=== PATIENT | male | born 1950 | race Caucasian/White ===

== ENCOUNTER → 2017-07-04 | Outpatient (CLI) | payer MEDICARE, OTHER ==
--- NOTE | 2017-07-04 10:20 | RADIOLOGY REPORT (SQ) ---
EXAM DESCRIPTION: CT CHEST WITHOUT COMPLETED DATE/TIME: 07/04/2017 9:06 am REASON FOR STUDY: DYSPNEA (R06.00) R06.00 DYSPNEA, UNSPECIFIED COMPARISON: None. TECHNIQUE: CT scan performed of the chest without intravenous contrast. Images reviewed with lung, soft tissue and bone windows. Reconstructed coronal and sagittal MPR images reviewed. All images st ored on PACS. All CT scanners at this facility use dose modulation, iterative reconstruction, and/or weight based d osing when appropriate to reduce radiation dose to as low as reasonably achievable (ALARA). [facility]: Dose Right [facility]: CareDose [facility]: Dose Right [facility]: Teradose 4D [facility]: Smart BigSwerve RADIATION DOSE: CT Rad equipment meets quality standard of care and radiation dose reduction techniq ues were employed. CTDIvol: 3.7 mGy. DLP: 165 mGy-cm. mGy. LIMITATIONS: No technical limitations. FINDINGS: LUNGS AND PLEURA: Extensive bullous emphysema. Scarring in the apices. No honeycombing. No focal masses. HILAR AND MEDIASTINAL STRUCTURES: No identified masses or abnormal nodes. No obvious aneurysm. HEART AND VASCULAR STRUCTURES: No aneurysm. No pericardial effusion. UPPER ABDOMEN: Possible mass measuring 2.7 cm in the hilum spleen. This could also be a cystic lesio n from the pancreas. THYROID AND OTHER SOFT TISSUES: No masses. No adenopathy. BONES: No significant finding. HARDWARE: None in the chest. OTHER: No other significant findings. IMPRESSION: Extensive bullous emphysema and scarring in the lungs. No masses. Questionable left upper quadrant mass. Incompletely imaged. COMMENT: Ultrasound or CT of the abdomen. TECHNICAL DOCUMENTATION: JOB ID: [id number] Quality ID # 436: Final reports with documentation of one or more dose reduction techniques (e.g., Au tomated exposure control, adjustment of the mA and/or kV according to patient size, use of iterative reconstruction technique) 2010 [employer]- All Rights Reserved Reading location - IP/workstation name: [email or web address]
== END ==
LOC: RAD 08:48
PROVIDERS: ATTEND Physician Assistant
DX: J43.9 Emphysema, unspecified (principal); R06.00 Dyspnea, unspecified
CPT/HCPCS: 71250

== ENCOUNTER → 2017-07-11 | Outpatient (CLI) | payer MEDICARE, OTHER ==
--- NOTE | 2017-07-11 10:18 | RADIOLOGY REPORT (SQ) ---
EXAM DESCRIPTION: CT ABDOMEN COMBO COMPLETED DATE/TIME: 07/11/2017 9:28 am REASON FOR STUDY: LUQ ABDOMINAL SWELLING. MASS AND LUMP R19.02 LEFT UPPER QUADRANT ABDOMINAL SWELLI NG, MASS AND LUMP COMPARISON: CT chest examination dated 07/04/2017 TECHNIQUE: CT scan of the abdomen performed with and without intravenous contrast, and with oral con trast. Contrasted imaging performed using helical scanning technique with dynamic intravenous contras t injection. Images reviewed with lung, soft tissue, and bone windows. Reconstructed coronal and sagi ttal MPR images reviewed. Delayed images for evaluation of the urinary system also acquired and evalu ated. All images stored on PACS. All CT scanners at this facility use dose modulation, iterative reconstruction, and/or weight based d osing when appropriate to reduce radiation dose to as low as reasonably achievable (ALARA). [facility]: Dose Right [facility]: CareDose [facility]: Dose Right [facility]: Teradose 4D [facility]: Social DJ CONTRAST TYPE AND DOSE: contrast/concentration: Isovue 370.00 mg/ml; Total Contrast Delivered: 60.0 ml; Total Saline Delivered: 65.0 ml RENAL FUNCTION: GFR=45 RADIATION DOSE: CT Rad equipment meets quality standard of care and radiation dose reduction techniq ues were employed. CTDIvol: 8.8 - 8.9 mGy. DLP: 836 mGy-cm.. LIMITATIONS: None. FINDINGS: NONCONTRASTED IMAGING: No significant renal or bladder calcifications. No other significan t organ calcifications. POSTCONTRASTED IMAGING: LOWER CHEST: Emphysematous changes in the visualized lower lungs. Very small 2-3 mm left lower lobe pulmonary nodule, axial image 11, series 5. LIVER: A few too small to characterize hepatic lesions. Mild central intra and extrahepatic biliary dilatation in a post cholecystectomy patient. The hepatic and portal veins are patent. SPLEEN: Normal size. No focal lesions. PANCREAS: No masses. No significant calcifications. No adjacent inflammation or peripancreatic fluid collections. Pancreatic duct not dilated. GALLBLADDER: Prior cholecystectomy. ADRENAL GLANDS: No significant masses or asymmetry. RIGHT KIDNEY AND URETER: Right renal cyst. No significant calcifications. No hydronephrosis or hydro ureter. LEFT KIDNEY AND URETER: Left renal cysts. No significant calcifications. No hydronephrosis or hydr oureter. No significant calcifications. No hydronephrosis or hydroureter. AORTA AND VESSELS: Atherosclerotic changes involving the abdominal aorta and visualized branch vesse ls. No aneurysm. No dissection. Renal arteries, SMA, celiac without stenosis. RETROPERITONEUM: No retroperitoneal adenopathy, hemorrhage or masses. BOWEL AND PERITONEAL CAVITY: Colonic fecal stasis involving the visualized bowel. No free fluid or peritoneal masses. APPENDIX: Not visualized. ABDOMINAL WALL: Small fat containing umbilical hernia. BONES: Degenerative changes and disc disease involving the visualized lower lumbar spine. OTHER: No other significant finding. IMPRESSION: 1 Bilateral renal cysts. The left renal cyst likely accounts for the finding demonstrat ed on the CT chest examination dated 07/04/2017. 2 Prior cholecystectomy. 3 Small fat containing umbilical hernia. 4 A few too small to characterize hepatic lesions. 5 Additional findings as above. TECHNICAL DOCUMENTATION: JOB ID: [id number] Quality ID # 436: Final reports with documentation of one or more dose reduction techniques (e.g., Au tomated exposure control, adjustment of the mA and/or kV according to patient size, use of iterative reconstruction technique) 2010 [employer]- All Rights Reserved Reading location - IP/workstation name: [email or web address]
== END ==
LOC: RAD 08:43
PROVIDERS: ATTEND Physician Assistant
DX: R19.02 Left upper quadrant abdominal swelling, mass and lump (principal); K42.9 Umbilical hernia without obstruction or gangrene; N28.1 Cyst of kidney, acquired; K76.9 Liver disease, unspecified
CPT/HCPCS: 74170; 82565

== ENCOUNTER → 2017-09-23 | Outpatient (CLI) | payer MEDICARE, OTHER ==
[2017-09-23 11:26] LABS: ALANINE AMINOTRANSFERASE 26 U/L (21-72); ALKALINE PHOSPHATASE 57 U/L (38-126); ANION GAP 9 (5-19); ASPARTATE AMINO TRANSFERASE 22 U/L (17-59); BILIRUBIN,DIRECT 0.3 mg/dL (0.0-0.4); BILIRUBIN,TOTAL 0.6 mg/dL (0.2-1.3); BLOOD UREA NITROGEN 15 mg/dL (7-20); CALCIUM 9.4 mg/dL (8.4-10.2); CARBON DIOXIDE 31 mmol/L (22-30); CHLORIDE 102 mmol/L (98-107); CHOLESTEROL 115.06 mg/dL (0-200); GLUCOSE 102 mg/dL (75-110); POTASSIUM 4.4 mmol/L (3.6-5.0); SODIUM 141.6 mmol/L (137-145); TOTAL PROTEIN 6.7 g/dL (6.3-8.2); TRIGLYCERIDES 57 mg/dL (<150)
[2017-09-23 11:57] LABS: DIRECT LDL < 30 mg/dL (<100)
--- NOTE | 2017-09-23 12:29 | RADIOLOGY REPORT (SQ) ---
EXAM DESCRIPTION: U/S ABDOMEN LIMITED W/O DOP COMPLETED DATE/TIME: 09/23/2017 10:38 am REASON FOR STUDY: CYST OF KIDNEY, ACQUIRED,LIVER DISEASE N28.1 CYST OF KIDNEY, ACQUIRED K76.9 LIVE R DISEASE, UNSPECIFIED I10 ESSENTIAL (PRIMARY) HYPERTENSION COMPARISON: Abdominal ultrasound 09/23/2017 CT abdomen pelvis 07/11/2017 TECHNIQUE: Dynamic and static grayscale images acquired of the abdomen and recorded on PACS. Additio nal selected color Doppler and spectral images recorded. LIMITATIONS: Right upper quadrant bowel gas, midline bowel gas FINDINGS: PANCREAS: Not visualized LIVER: Normal size and echogenicity. No masses or biliary ductal dilatation. LIVER VASCULATURE: Normal directional flow of the main portal vein and hepatic veins. GALLBLADDER: Surgically absent ULTRASOUND-DETECTED MINAYA'S SIGN: Not applicable INTRAHEPATIC DUCTS AND COMMON DUCT: CBD and intrahepatic ducts normal caliber. No filling defects. INFERIOR VENA CAVA: Not well seen AORTA: Not well seen RIGHT KIDNEY: Right kidney 9.3 cm in size with a 3.6 cm cyst at the lower pole right kidney. PERITONEAL AND RIGHT PLEURAL SPACE: No ascites or effusions. OTHER: No other significant findings. IMPRESSION: Post cholecystectomy. Right lower pole renal cortical cyst TECHNICAL DOCUMENTATION: JOB ID: [id number] [employer]- All Rights Reserved Reading location - IP/workstation name: [email or web address]
[2017-09-23 12:32] LABS: ABSOLUTE EOSINOPHILS # (AUTO) 0.3 10^3/uL (0.0-0.6); ABSOLUTE LYMPHOCYTES (AUTO) 0.7 10^3/uL (0.5-4.7); ABSOLUTE MONOCYTES (AUTO) 0.7 10^3/uL (0.1-1.4); ABSOLUTE NEUT (AUTO) 6.6 10^3/uL (1.7-8.2); BASOPHILS % (AUTO) 0.2 % (0-2); EOSINOPHILS % (AUTO) 3.4 % (0-6); HEMATOCRIT 32.5 % (37.9-51.0); HEMOGLOBIN 11.3 g/dL (13.5-17.0); LYMPHOCYTES % (AUTO) 8.9 % (13-45); MEAN CORPUSCULAR HEMOGLOBIN 32.1 pg (27.0-33.4); MEAN CORPUSCULAR HGB CONC 34.7 g/dL (32.0-36.0); MEAN CORPUSCULAR VOLUME 92 fl (80-97); MONOCYTES % (AUTO) 8.5 % (3-13); PLATELET COUNT 324 10^3/uL (150-450); RED BLOOD COUNT 3.51 10^6/uL (4.35-5.55); RED CELL DISTRIBUTION WIDTH 13.2 % (11.5-14.0); TOTAL CELLS COUNTED % (AUTO) 100 %; WHITE BLOOD COUNT 8.4 10^3/uL (4.0-10.5)
--- NOTE | 2017-09-23 12:37 | RADIOLOGY REPORT (SQ) ---
EXAM DESCRIPTION: U/S RETROPERITON LTD COMPLETED DATE/TIME: 09/23/2017 10:37 am REASON FOR STUDY: CYST OF KIDNEY, ACQUIRED,LIVER DISEASE N28.1 CYST OF KIDNEY, ACQUIRED K76.9 LIVE R DISEASE, UNSPECIFIED COMPARISON: CT chest 07/04/2017 CT abdomen pelvis 07/11/2017 Abdominal ultrasound 09/23/2017 TECHNIQUE: Dynamic and static grayscale images acquired of the kidneys and bladder and recorded on P ACS. Additional selected color Doppler and spectral images recorded. LIMITATIONS: None. FINDINGS: RIGHT KIDNEY: Normal size, 9.3 cm in length. Normal echogenicity. No solid or suspici ous masses. 3.4 cm cyst right lower pole kidney. No hydronephrosis. No calcifications. LEFT KIDNEY: Normal size, 9.7 cm in length. Normal echogenicity. No solid or suspicious masses. 4 cm cyst left upper pole kidney. No hydronephrosis. No calcifications. BLADDER: Decompressed, not well seen OTHER FINDINGS: No other significant finding. IMPRESSION: Benign bilateral renal cortical cysts. TECHNICAL DOCUMENTATION: JOB ID: [id number] [employer]- All Rights Reserved Reading location - IP/workstation name: [email or web address]
== END ==
LOC: RAD 09:37
PROVIDERS: ATTEND Family Medicine Geriatric Medicine
DX: I10 Essential (primary) hypertension (principal); E78.5 Hyperlipidemia, unspecified; I73.9 Peripheral vascular disease, unspecified; J44.9 Chronic obstructive pulmonary disease, unspecified; N28.1 Cyst of kidney, acquired; K76.9 Liver disease, unspecified
CPT/HCPCS: 36415; 76705; 76775; 80053; 80061; 84443; 85025

== ENCOUNTER → 2017-12-22 | Outpatient (CLI) | payer MEDICARE, OTHER ==
[2017-12-22 15:11] LABS: ABSOLUTE EOSINOPHILS # (AUTO) 0.2 10^3/uL (0.0-0.6); ABSOLUTE LYMPHOCYTES (AUTO) 1.3 10^3/uL (0.5-4.7); ABSOLUTE MONOCYTES (AUTO) 0.7 10^3/uL (0.1-1.4); ABSOLUTE NEUT (AUTO) 4.1 10^3/uL (1.7-8.2); BASOPHILS % (AUTO) 0.6 % (0-2); EOSINOPHILS % (AUTO) 3.2 % (0-6); HEMATOCRIT 35.8 % (37.9-51.0); HEMOGLOBIN 12.3 g/dL (13.5-17.0); LYMPHOCYTES % (AUTO) 20.8 % (13-45); MEAN CORPUSCULAR HEMOGLOBIN 31.3 pg (27.0-33.4); MEAN CORPUSCULAR HGB CONC 34.3 g/dL (32.0-36.0); MEAN CORPUSCULAR VOLUME 91 fl (80-97); MONOCYTES % (AUTO) 10.6 % (3-13); PLATELET COUNT 364 10^3/uL (150-450); RED BLOOD COUNT 3.92 10^6/uL (4.35-5.55); RED CELL DISTRIBUTION WIDTH 13.6 % (11.5-14.0); SEGMENTED NEUTROPHILS % (AUTO) 64.8 % (42-78); TOTAL CELLS COUNTED % (AUTO) 100 %; WHITE BLOOD COUNT 6.3 10^3/uL (4.0-10.5)
== END ==
LOC: LAB 14:50
PROVIDERS: ATTEND Family Medicine Geriatric Medicine
DX: D64.9 Anemia, unspecified (principal)
CPT/HCPCS: 36415; 85025

== ENCOUNTER → 2018-07-14 | Outpatient (CLI) | payer MEDICARE, OTHER ==
--- NOTE | 2018-07-14 14:03 | RADIOLOGY REPORT (SQ) ---
EXAM DESCRIPTION: CT CHEST WITHOUT COMPLETED DATE/TIME: 07/14/2018 1:52 pm REASON FOR STUDY: R91.1 SOLITARY PULMONARY NODULE R91.1 SOLITARY PULMONARY NODULE COMPARISON: 07/04/2017 TECHNIQUE: CT scan performed of the chest without intravenous contrast. Images reviewed with lung, soft tissue and bone windows. Reconstructed coronal and sagittal MPR images reviewed. All images st ored on PACS. All CT scanners at this facility use dose modulation, iterative reconstruction, and/or weight based d osing when appropriate to reduce radiation dose to as low as reasonably achievable (ALARA). [facility]: Dose Right [facility]: CareDose [facility]: Dose Right [facility]: Teradose 4D [facility]: Smart Dajie RADIATION DOSE: CT Rad equipment meets quality standard of care and radiation dose reduction techniq ues were employed. CTDIvol: 3.3 mGy. DLP: 160 mGy-cm. mGy. LIMITATIONS: No technical limitations. FINDINGS: LUNGS AND PLEURA: There is scarring in the lung apices. Severe bilateral emphysematous ch anges with subpleural blebs and simplification of the lung architecture. There is a stable 4.7 mm no dule in the posterior aspect of the right upper lobe. HILAR AND MEDIASTINAL STRUCTURES: No identified masses or abnormal nodes. No obvious aneurysm. HEART AND VASCULAR STRUCTURES: No aneurysm. No pericardial effusion. UPPER ABDOMEN: No significant findings. Limited exam. THYROID AND OTHER SOFT TISSUES: No masses. No adenopathy. BONES: No significant finding. HARDWARE: None in the chest. OTHER: No other significant findings. IMPRESSION: Severe COPD. Stable 4.7 mm nodule in the posterior aspect of the right upper lobe. Ple ase see below for recommended follow-up. COMMENT: FLEISCHNER CRITERIA FOR FOLLOW-UP OF PULMONARY NODULES Incidentally detected new nodules in persons 35 or older. HIGH RISK: History of smoking or other known risk factors. <6mm single solid nodule: LOW RISK: no routine followup. HIGH RISK: optional CT 12 mo. TECHNICAL DOCUMENTATION: JOB ID: [id number] Quality ID # 436: Final reports with documentation of one or more dose reduction techniques (e.g., Au tomated exposure control, adjustment of the mA and/or kV according to patient size, use of iterative reconstruction technique) 2010 [employer]- All Rights Reserved Reading location - IP/workstation name: [email or web address]
== END ==
LOC: RAD 13:38
PROVIDERS: ATTEND Internal Medicine Pulmonary Disease
DX: J44.9 Chronic obstructive pulmonary disease, unspecified (principal); R91.1 Solitary pulmonary nodule
CPT/HCPCS: 71250

== ENCOUNTER 2019-04-10 11:36 | Inpatient (IN) | payer MEDICARE, OTHER ==
[2019-04-10] MEDS ORDERED: METHYLPREDNISOLONE INJ 125 MG/2 ML SDV IV ONE (11:52)
--- NOTE | 2019-04-10 12:11 | ER Document Report ---
ED Respiratory Problem - General Chief Complaint: Breathing Difficulty Stated Complaint: DIFFICULTY BREATHING Time Seen by Provider: 04/10/19 11:50 Primary Care Provider: FANNY ELENA MD [ACTIVE STAFF] - Follow up as needed Notes: HPI: 68-year-old male who is an extremely poor historian who was picked up by EMS. Patient supposedly got discharged from [facility] 1 week ago secondary to a pneumonia with a COPD exacerbation. History supposedly of COPD as well as also being on Lasix. called EMS secondary to breathing difficulty and "weak all over". Patient supposedly did not tack picker the prednisone, antibiotics, and has not taken his Lasix. EMS stated that the patient was wheezing with some low oxygen saturation. They did provide 3 albuterol/Atrovent nebulizers. They did not provide steroids. Patient was afebrile. No Accu-Chek was performed. Patient himself denies any chest pain, vomiting, or diarrhea. Patient states he is aware he is a poor historian and is asked to call his daughter who currently works in the hospital. ROS: See HPI Unable to obtain a full review of systems secondary to patient's condition Reviewed vital signs and nursing note as charted by RN. PHYSICAL EXAM: CONSTITUTIONAL: Alert and does follow commands HEAD: Normocephalic; atraumatic EYES: PERRL; Conjunctivae clear, sclerae non-icteric ENT: Normal nose; no rhinorrhea; moist mucous membranes; pharynx without lesions noted NECK: Supple without meningismus; non-tender; no cervical lymphadenopathy, no masses CARD: Regular rate and rhythm; no murmurs; symmetric distal pulses RESP: Patient has some tachypnea with some retractions. End expiratory wheezing with some scattered rhonchi and rales. ABD/GI: Normal bowel sounds; non-distended; soft, non-tender; no palpable orga nomegaly or masses BACK: The back appears normal and is non-tender to palpation EXT: Normal ROM in all joints; non-tender to palpation; 1+ pitting edema to bilateral lower shins SKIN: No acute lesions noted NEURO: CN 2-12 intact; 5/5 bilateral upper and lower extremity strength with sensation intact to light touch PSYCH: The patient's mood and manner are appropriate. Grooming and personal hyg iene are appropriate. TRAVEL OUTSIDE OF THE [place] IN LAST 30 DAYS: No - Related Data Allergies/Adverse Reactions: No Known Allergies Allergy (Unverified 05/25/12 07:10) Past Medical History - Social History Smoking Status: Former Smoker Family History: Reviewed & Not Pertinent - Past Medical History Cardiac Medical History: Reports: Hx Hypertension - 0N MEDS Denies: Hx Coronary Artery Disease, Hx Heart Attack Pulmonary Medical History: Reports: Hx COPD - ON MEDS Denies: Hx Asthma, Hx Bronchitis, Hx Pneumonia Neurological Medical History: Denies: Hx Cerebrovascular Accident, Hx Seizures Musculoskeletal Medical History: Reports Hx Arthritis - GENERALIZED - Immunizations Hx Diphtheria, Pertussis, Tetanus Vaccination: No Physical Exam - Vital signs Vitals: Temp Resp 98.3 F 11 L 04/10/19 11:45 04/10/19 11:45 Course - Re-evaluation Re-evalutation: Given the history and physical, we will place the patient on the monitor, and reassess the patient's airway and breathing, possibly place the patient on BiPAP, and reassess. Patient's blood pressure is tenuous and he is tachycardic. Lung examination as above. I would like to make sure that the patient's blood pressure was stable enough for the positive pressure ventilation. I have provided a dose of steroids. We will attempt to contact the patient's daughter. Patient is noted to have some edema to the upper extremities but no edema to the lower extremities? 04/10/19 12:09 EKG shows heart of 125, sinus tachycardia, right bundle branch block, nonspecific QRS widening. No obvious ST elevation or depression 04/10/19 12:34 I was able to talk to the patient's who is currently in the room who corroborates the story. Patient was at [facility] for 2 weeks secondary to pneumonia. She denies any history of heart failure. Given the tachycardia with the minimally low blood pressure we will provide a liter of fluid and consider BiPAP. Patient is speaking in complete sentences satting at 95% at this moment. 04/10/19 13:31 I have spoken with the daughter who is currently in the hospital. I have also obtain outside records from [facility]. There was a CT pulmonary embolism study on March 27. It showed severe emphysema with superimposed left upper lobe pneumonia. Patient has discharge diagnosis of acute on chronic respiratory failure, acute exacerbation of COPD, tachydysrhythmia, sepsis, Pseudomonas pneumonia, chronic anemia, with a heme positive stool. Patient at discharge was started on omeprazole and prednisone. Patient also had a YONAS showing an ejection fraction of 55%. Did recommend a skilled living facility but the patient declined. They suspected multifocal atrial tachycardia as his tachydysrhythmia. Given the history of multifocal atrial tachycardia with the EKG and heart rate as recorded, will provide magnesium and attempt to treat the patient's respiratory symptoms. 04/10/19 14:53 CT scan does show what appears to be a cavitary mass. 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 Family refuses to be transferred and would like to stay here. Daughter is an employee here and reiterates this to me. I have explained this to the hospitalist who states that they can accept. I have co ana with Fatimahn which should be coverage for Pseudomonas. Previous CT scan 9 months ago as well as the one from the previous admission did not show this lesion. - Vital Signs Vital signs: Temp Pulse Resp BP Pulse Ox 98.3 F 15 100/62 04/10/19 11:45 04/10/19 13:01 04/10/19 13:00 - Laboratory Result Diagrams: 04/10/19 11:50 04/10/19 11:50 Laboratory results interpreted by me: 04/10/19 04/10/19 04/10/19 11:50 11:50 11:50 WBC 15.4 H RBC 2.90 L Hgb 8.6 L Hct 26.2 L RDW 16.0 H Plt Count 681 H Seg Neuts % (Manual) 92 H Lymphocytes % (Manual) 1 L Abs Neuts (Manual) 14.2 H Abs Lymphs (Manual) 0.2 L Carbonic Acid ABG pH ABG pCO2 ABG pO2 ABG HCO3 ABG Total CO2 ABG O2 Saturation Chloride 91 L Carbon Dioxide 40 H* BUN 49 H Creatinine 1.32 H Est GFR (MDRD) Non-Af 54 L NT-Pro-B Natriuret Pep 699 H 04/10/19 13:14 WBC RBC Hgb Hct RDW Plt Count Seg Neuts % (Manual) Lymphocytes % (Manual) Abs Neuts (Manual) Abs Lymphs (Manual) Carbonic Acid 1.75 H ABG pH 7.46 H ABG pCO2 58.3 H ABG pO2 51.6 L ABG HCO3 40.6 H ABG Total CO2 42.4 H ABG O2 Saturation 87.4 L Chloride Carbon Dioxide BUN Creatinine Est GFR (MDRD) Non-Af NT-Pro-B Natriuret Pep Critical Care Note - Critical Care Note Total time excluding time spent on procedures (mins): 45 Discharge - Discharge Clinical Impression: Cavitary lung disease Condition: Fair Disposition: ADMITTED INPATIENT Admitting Provider: Janine (Hospitalist) Unit Admitted: IMCU Referrals: FANNY ELENA MD [ACTIVE STAFF] - Follow up as needed
[2019-04-10 12:25] LABS: BLOOD UREA NITROGEN 49 mg/dL (7-20); CALCIUM 9.8 mg/dL (8.4-10.2); CHLORIDE 91 mmol/L (98-107); GLUCOSE 93 mg/dL (75-110); POTASSIUM 4.9 mmol/L (3.6-5.0)
[2019-04-10 12:29] LABS: HEMATOCRIT 26.2 % (37.9-51.0); HEMOGLOBIN 8.6 g/dL (13.5-17.0); MEAN CORPUSCULAR HEMOGLOBIN 29.5 pg (27.0-33.4); MEAN CORPUSCULAR HGB CONC 32.7 g/dL (32.0-36.0); MEAN CORPUSCULAR VOLUME 91 fl (80-97); PLATELET COUNT 681 10^3/uL (150-450); WHITE BLOOD COUNT 15.4 10^3/uL (4.0-10.5)
[2019-04-10 12:38] LABS: ANION GAP 7 (5-19); TROPONIN I 0.021 ng/mL
[2019-04-10 12:49] LABS: CARBON DIOXIDE 40 mmol/L (22-30)
--- NOTE | 2019-04-10 12:57 | RADIOLOGY REPORT (SQ) ---
EXAM DESCRIPTION: CHEST SINGLE VIEW COMPLETED DATE/TIME: 04/10/2019 11:14 am REASON FOR STUDY: MP; sob COMPARISON: CT chest, 07/14/2018. EXAM PARAMETERS: NUMBER OF VIEWS: One view. TECHNIQUE: Single frontal radiographic view of the chest acquired. RADIATION DOSE: NA LIMITATIONS: None. FINDINGS: LUNGS AND PLEURA: There is a large cavitary mass/consolidation with central bubbly gas in the left upper lobe. The left lower lung is clear. Lungs are hyperinflated. Right lung is clear. No pleural effusion. No pneumothorax. MEDIASTINUM AND HILAR STRUCTURES: No masses. Contour normal. HEART AND VASCULAR STRUCTURES: Heart normal in size. Normal vasculature. BONES: No acute findings. HARDWARE: None in the chest. OTHER: No other significant finding. IMPRESSION: Large area of consolidation in the left upper lobe with appearance of necrotizing pneumo lucille or possibly cavitary mass. Further evaluation with contrast-enhanced CT of the chest is recommen ded. TECHNICAL DOCUMENTATION: JOB ID: [id number] [employer]- All Rights Reserved Reading location - IP/workstation name: [email or web address]
[2019-04-10] MEDS ORDERED: VANCOMYCIN HCL INJ 1000 MG VIAL IV ONE (13:03)
[2019-04-10] MEDS ORDERED: PIPERACILLIN/TAZOBACTAM 3.375 GM VIAL IV ONE (13:04)
[2019-04-10 13:08] LABS: ABSOLUTE LYMPHOCYTES# (MANUAL) 0.2 10^3/uL (0.5-4.7); ABSOLUTE MONOCYTES # (MANUAL) 1.1 10^3/uL (0.1-1.4); BASOPHILS % (MANUAL) 0 % (0-2); EOSINOPHILS % (MANUAL) 0 % (0-6); LYMPHOCYTES % (MANUAL) 1 % (13-45); MONOCYTES % (MANUAL) 7 % (3-13); SEGMENTED NEUTROPHILS % (MAN) 92 % (42-78); TOTAL CELLS COUNTED 100
[2019-04-10 13:09] LABS: ANISOCYTOSIS 1+; PLATELET CLUMPS PRESENT; PLATELET COMMENT INCREASED; TOXIC GRANULATION SLIGHT
[2019-04-10 13:29] LABS: ARTERIAL BLOOD BASE EXCESS 15.1 mmol/L; ARTERIAL BLOOD FIO2 3L; ARTERIAL BLOOD H2CO3 1.75 mmol/L (1.05-1.35); ARTERIAL BLOOD HCO3 40.6 mmol/L (20-24); ARTERIAL BLOOD O2 SATURATION 87.4 % (94-98); ARTERIAL BLOOD PCO2 58.3 mmHg (35-45); ARTERIAL BLOOD PH 7.46 (7.35-7.45); ARTERIAL BLOOD PO2 51.6 mmHg (80-100); ARTERIAL BLOOD TOTAL CO2 42.4 mmol/L (23-27)
--- NOTE | 2019-04-10 13:56 | EKG REPORT ---
SEVERITY:- ABNORMAL ECG - SINUS TACHYCARDIA RIGHT BUNDLE BRANCH BLOCK LOW VOLTAGE WITH RIGHT AXIS DEVIATION : Confirmed by: Michael Butt MD 10-Apr-2019 13:56:28
[2019-04-10] MEDS ORDERED: ACETAMINOPHEN 325 MG TABLET PO ONE (13:57)
[2019-04-10] MEDS ORDERED: NORMAL SALINE 1000 ML 1,000 ML IV ONE (13:57)
--- NOTE | 2019-04-10 14:44 | RADIOLOGY REPORT (SQ) ---
EXAM DESCRIPTION: CT CHEST WITH COMPLETED DATE/TIME: 04/10/2019 2:14 pm REASON FOR STUDY: MP; cavitary mass COMPARISON: Chest x-ray 04/10/2019 CT chest 07/14/2018 TECHNIQUE: CT scan of the chest performed using helical scanning technique with dynamic intravenous contrast injection. Images reviewed with lung, soft tissue and bone windows. Reconstructed coronal and sagittal MPR and MIP images reviewed. All images stored on PACS. All CT scanners at this facility use dose modulation, iterative reconstruction, and/or weight based d osing when appropriate to reduce radiation dose to as low as reasonably achievable (ALARA). [facility]: Dose Right [facility]: CareDose [facility]: Dose Right [facility]: Teradose 4D [facility]: VideoBurst CONTRAST TYPE AND DOSE: contrast/concentration: Isovue mg/ml; Total Contrast Delivered: 80.0 ml; To scott Saline Delivered: 48.9 ml RENAL FUNCTION: BUN 49 creatinine 1.32 RADIATION DOSE: CT Rad equipment meets quality standard of care and radiation dose reduction techniq ues were employed. CTDIvol: 11.6 mGy. DLP: 567 mGy-cm. . LIMITATIONS: None. FINDINGS: LUNGS AND PLEURA: Severe pulmonary emphysema. There is marked masslike opacification of t he left upper lobe. Prominent air-fluid level is present. There is considerable peripheral thickeni ng. Air spaces are interspersed amongst the denser elements. Small to moderate bilateral pleural ef fusions are present. There is mild dependent atelectasis in the right upper lobe. A small nodule in the right upper lobe posteriorly on the prior study is not identified currently. HILAR AND MEDIASTINAL STRUCTURES: No identified masses or abnormal nodes. HEART AND VASCULAR STRUCTURES: No aneurysm or dissection. No central pulmonary emboli. No pericardi al effusion. HARDWARE: None in the chest. UPPER ABDOMEN: No significant findings. Limited exam. THYROID AND OTHER SOFT TISSUES: No masses. No adenopathy. BONES: No significant finding. OTHER: No other significant finding. IMPRESSION: 1. There is a dramatic change in the appearance of the left upper lobe with a large pne umatocoele containing an air-fluid level. Dense elements are seen peripherally which contains small air spaces. The findings suggest an infectious process, perhaps a fungal infection. 2. There are small a moderate bilateral pleural effusions. There is mild dependent atelectasis. 3. A small right upper lobe pulmonary nodule seen on the prior study is not identified on the curren t study. 4. Severe emphysematous changes are present. COMMENT: Pertinent findings on the imaging study reported as a CRITICAL RESULT to DAIANA GARCIA MD at 14:39 on 04/10/2019. Category of Critical Result: Cavitary lesion. TECHNICAL DOCUMENTATION: JOB ID: [id number] Quality ID # [id number]: Final reports with documentation of one or more dose reduction techniques (e.g., Au tomated exposure control, adjustment of the mA and/or kV according to patient size, use of iterative reconstruction technique) 2010 [employer]- All Rights Reserved Reading location - IP/workstation name: [email or web address]
[2019-04-10] MEDS ORDERED: ACETAMINOPHEN 325 MG TABLET PO PRN (17:06)
[2019-04-10] MEDS ORDERED: GUAIFENESIN SYRP 200 MG/10 ML UDC PO PRN (17:06)
[2019-04-10] MEDS ORDERED: IPRATROPIUM/ALBUTEROL 0.5-2.5 MG/3 ML AMPUL NEB PRN (17:06)
[2019-04-10] MEDS: NORMAL SALINE 1000 ML 1,000 ML IV PRN ×2 (17:15→18:47)
--- NOTE | 2019-04-10 17:21 | PDOC H&P ---
History of Present Illness Admission Date/PCP: 04/10/19 15:07 NED SORTO MD Patient complains of: Increasing weakness, shortness of breath History of Present Illness: KIMBERLY SHAH is a 68 year old male with a history of advanced emphysema on 4 L home O2, hypertension who was brought in by daughter and for evaluation of increased weakness, malaise and shortness of breath. Of note patient was recently in [facility] where he was admitted for 2 weeks for treatment of pneumonia and discharged about 2 weeks ago. During his stay at the hospital he received antibiotics and there was some mention of Pseudomonas. Chest CT that was done over there did not show any cavitary lung lesion. When patient was discharged, patient started getting increasingly weak. Family noticed some cough as well and fever. Family also reports that patient has been getting increasingly confused. In the ER patient was noted to have a cavitary lung lesion which does appear to be an abscess. Subsequently recommended for admission by hospitalist service. Past Medical History Cardiac Medical History: Reports: Hypertension - 0N MEDS Denies: Coronary Artery Disease, Myocardial Infarction Pulmonary Medical History: Reports: Chronic Obstructive Pulmonary Disease (COPD) - ON MEDS Denies: Asthma, Bronchitis, Pneumonia Neurological Medical History: Denies: Seizures Musculoskeltal Medical History: Reports: Arthritis - GENERALIZED Past Surgical History Past Surgical History: Reports: Cholecystectomy Social History Smoking Status: Former Smoker Electronic Cigarette use?: No - Advance Directive Resuscitation Status: Full Code Family History Family History: Reviewed & Not Pertinent, Hypertension Parental Family History Reviewed: Yes Children Family History Reviewed: NA Sibling(s) Family History Reviewed.: NA Medication/Allergy Home Medications: Fluticasone/Salmeterol [Advair 100-50 Diskus 14 Dose/Diskus] 1 inh IH Q12H 05/24/12 Hydrochlorothiazide 25 mg PO DAILY 05/24/12 Lisinopril [Prinivil 20 mg Tablet] 20 mg PO DAILY 05/24/12 Tiotropium [place] [Spiriva Handihaler 18 mcg/dose (30 Dose)] 1 cap IH DAILY 0 05/24/12 Allergies/Adverse Reactions: No Known Allergies Allergy (Unverified 05/25/12 07:10) Review of Systems ROS unobtainable: Due to mental status Physical Exam Vital Signs: Temp Pulse Resp BP Pulse Ox 100.0 F 15 93/50 L 98 04/10/19 16:01 04/10/19 16:01 04/10/19 16:00 04/10/19 16:19 Intake & Output 04/09/19 04/10/19 04/11/19 06:59 06:59 06:59 Intake Total 1000 Balance 1000 Weight 66.3 kg General appearance: PRESENT: no acute distress, cooperative Head exam: PRESENT: atraumatic Eye exam: PRESENT: EOMI Mouth exam: PRESENT: dry mucosa Neck exam: ABSENT: JVD Respiratory exam: PRESENT: crackles, decreased breath sounds, prolonged expiratory phas, rhonchi, symmetrical, tachypnea, unlabored. ABSENT: accessory muscle use, retraction, wheezes Cardiovascular exam: PRESENT: RRR, +S1, +S2, tachycardia GI/Abdominal exam: PRESENT: normal bowel sounds, soft. ABSENT: rebound, rigid, tenderness Extremities exam: ABSENT: pedal edema, +1 edema, +2 edema Neurological exam: PRESENT: alert, awake, oriented to person, oriented to place, oriented to time, other - Despite patient being alert and oriented, it is difficult for patient to engage in conversation and answer reasonably to certain questions asked. Often mumbles and hums. He is however able to follow some instructions but not all.. ABSENT: oriented to situation Psychiatric exam: ABSENT: agitated Skin exam: PRESENT: dry, pallor Results Laboratory Results: 04/10/19 11:50 04/10/19 11:50 04/10/19 04/10/19 04/10/19 11:50 11:50 11:50 WBC 15.4 H RBC 2.90 L Hgb 8.6 L Hct 26.2 L MCV 91 MCH 29.5 MCHC 32.7 RDW 16.0 H Plt Count 681 H Seg Neutrophils % Not Reportable Carbonic Acid HCO3/H2CO3 Ratio ABG pH ABG pCO2 ABG pO2 ABG HCO3 ABG O2 Saturation ABG Base Excess VBG pH Cancelled VBG pCO2 Cancelled VBG HCO3 Cancelled VBG Base Excess Cancelled FiO2 Sodium 138.2 Potassium 4.9 Chloride 91 L Carbon Dioxide 40 H* Anion Gap 7 BUN 49 H Creatinine 1.32 H Est GFR ( Amer) > 60 Glucose 93 Lactic Acid Calcium 9.8 04/10/19 04/10/19 11:50 13:14 WBC RBC Hgb Hct MCV MCH MCHC RDW Plt Count Seg Neutrophils % Carbonic Acid 1.75 H HCO3/H2CO3 Ratio 23:1 ABG pH 7.46 H ABG pCO2 58.3 H ABG pO2 51.6 L ABG HCO3 40.6 H ABG O2 Saturation 87.4 L ABG Base Excess 15.1 VBG pH VBG pCO2 VBG HCO3 VBG Base Excess FiO2 3L Sodium Potassium Chloride Carbon Dioxide Anion Gap BUN Creatinine Est GFR ( Amer) Glucose Lactic Acid 1.7 Calcium 04/10/19 11:50 Troponin I 0.021 NT-Pro-B Natriuret Pep 699 H Impressions: Chest X-Ray 04/10/19 11:51 IMPRESSION: Large area of consolidation in the left upper lobe with appearance of necrotizing pneumonia or possibly cavitary mass. Further evaluation with contrast-enhanced CT of the chest is recommended. Chest CT 04/10/19 13:04 IMPRESSION: 1. There is a dramatic change in the appearance of the left upper lobe with a large pneumatocoele containing an air-fluid level. Dense elements are seen peripherally which contains small air spaces. The findings suggest an infectious process, perhaps a fungal infection. 2. There are small a moderate bilateral pleural effusions. There is mild dependent atelectasis. 3. A small right upper lobe pulmonary nodule seen on the prior study is not identified on the current study. 4. Severe emphysematous changes are present. Assessment and Plan - Diagnosis (1) Abscess of lung with pneumonia Qualifiers: Laterality: left Lung location: upper lobe of lung Qualified Code(s): J85.1 - Abscess of lung with pneumonia Is this a current diagnosis for this admission?: Yes Plan: CT of the chest shows cavitary lung lesion. I have reviewed the image and it looks like lung abscesses amidst pneumonia. This is new as compared to last year CT. Also notably CT at [facility] recently did not have this finding. Low suspicion for TB given acuity of this finding and no history of travel--no need for airborne precaution or TB rule out. Check sputum culture Blood culture Vancomycin and Zosyn for broad coverage Consult placed with Dr. Bateman [patient's primary window shade cutter and mounter]--we will need to call tomorrow as I have not been able to reach via phone. Patient's and daughter maintain full CODE STATUS for patient. (2) COPD (chronic obstructive pulmonary disease) Is this a current diagnosis for this admission?: Yes Plan: Not in acute exacerbation Nebs as needed. LABA/LAMA/ICS (3) Severe sepsis Is this a current diagnosis for this admission?: Yes Plan: Evidenced by encephalopathy, elevated sofa score, leukocytosis fever and tachycardia with hypotension. Patient has not been adequately fluid resuscitated and is only receiving 1 L. I will give 2 L normal saline bolus and run on continuous fluids Hold antihypertensive medications Discussed case with lead java software engineer giving poor lung reserve and significant lung abscess. Patient was evaluated by Dr. Chen and recommended monitoring in IMCU at this time but to be reconsulted if any decline. Recommended random cortisol level - Time Time Spent with patient: 35 or more minutes
[2019-04-10] MEDS ORDERED: NORMAL SALINE 1000 ML 1,000 ML IV PRN (17:39)
--- NOTE | 2019-04-10 17:42 | PDOC CRITICAL CARE PROG REPORT ---
General Date:: 04/10/19 Hospital Day:: 0 Resuscitation Status: Full Code Events in the past 12 to 24 Hours:: Confused, Dehydrated, septic. Cavitary PNA. Possible ICU placement. Review of systems relevant to events:: Respiratory, neuro, CV Reason for ICU Addmission:: Evaluation. - Medications: Medications reviewed and adjusted accordingly: Yes Vasopressors:: None Sedation:: None Physical Exam Vital Signs: Temp Pulse Resp BP Pulse Ox 100.0 F 15 93/50 L 98 04/10/19 16:01 04/10/19 16:01 04/10/19 16:00 04/10/19 16:19 Intake & Output 04/09/19 04/10/19 04/11/19 06:59 06:59 06:59 Intake Total 1000 Balance 1000 Weight 66.3 kg Weight/Height Weight 66.3 kg General appearance: PRESENT: disheveled, thin, other - Confused. Head exam: PRESENT: atraumatic, normocephalic Eye exam: PRESENT: conjunctiva pink, EOMI, PERRLA. ABSENT: scleral icterus Ear exam: PRESENT: normal external ear exam Mouth exam: PRESENT: moist, tongue midline Neck exam: ABSENT: carotid bruit, JVD, lymphadenopathy, thyromegaly Respiratory exam: PRESENT: accessory muscle use, crackles - Crackles, decreased breath sounds Cardiovascular exam: PRESENT: RRR. ABSENT: diastolic murmur, rubs, systolic murmur GI/Abdominal exam: PRESENT: normal bowel sounds, soft. ABSENT: distended, guarding, mass, organolmegaly, rebound, tenderness Rectal exam: PRESENT: deferred Extremities exam: PRESENT: full ROM, other - Thin with evidence of muscle wasting Neurological exam: PRESENT: altered, oriented to person Skin exam: PRESENT: dry, intact, warm. ABSENT: cyanosis, rash Laboratory/Radiographs Laboratory Results: 04/10/19 11:50 04/10/19 11:50 04/10/19 04/10/19 04/10/19 11:50 11:50 11:50 WBC 15.4 H RBC 2.90 L Hgb 8.6 L Hct 26.2 L MCV 91 MCH 29.5 MCHC 32.7 RDW 16.0 H Plt Count 681 H Seg Neutrophils % Not Reportable Carbonic Acid HCO3/H2CO3 Ratio ABG pH ABG pCO2 ABG pO2 ABG HCO3 ABG O2 Saturation ABG Base Excess VBG pH Cancelled VBG pCO2 Cancelled VBG HCO3 Cancelled VBG Base Excess Cancelled FiO2 Sodium 138.2 Potassium 4.9 Chloride 91 L Carbon Dioxide 40 H* Anion Gap 7 BUN 49 H Creatinine 1.32 H Est GFR ( Amer) > 60 Glucose 93 Lactic Acid Calcium 9.8 04/10/19 04/10/19 11:50 13:14 WBC RBC Hgb Hct MCV MCH MCHC RDW Plt Count Seg Neutrophils % Carbonic Acid 1.75 H HCO3/H2CO3 Ratio 23:1 ABG pH 7.46 H ABG pCO2 58.3 H ABG pO2 51.6 L ABG HCO3 40.6 H ABG O2 Saturation 87.4 L ABG Base Excess 15.1 VBG pH VBG pCO2 VBG HCO3 VBG Base Excess FiO2 3L Sodium Potassium Chloride Carbon Dioxide Anion Gap BUN Creatinine Est GFR ( Amer) Glucose Lactic Acid 1.7 Calcium 04/10/19 11:50 Troponin I 0.021 NT-Pro-B Natriuret Pep 699 H Impressions: Chest X-Ray 04/10/19 11:51 IMPRESSION: Large area of consolidation in the left upper lobe with appearance of necrotizing pneumonia or possibly cavitary mass. Further evaluation with contrast-enhanced CT of the chest is recommended. Chest CT 04/10/19 13:04 IMPRESSION: 1. There is a dramatic change in the appearance of the left upper lobe with a large pneumatocoele containing an air-fluid level. Dense elements are seen peripherally which contains small air spaces. The findings suggest an infectious process, perhaps a fungal infection. 2. There are small a moderate bilateral pleural effusions. There is mild dependent atelectasis. 3. A small right upper lobe pulmonary nodule seen on the prior study is not identified on the current study. 4. Severe emphysematous changes are present. All labs, radiographs, diagnostic studies and EKGs were personally reviewed: Yes In addition, reports of radiographic and diagnostic studies were read: Yes Assessment and Plan - Diagnosis (1) Cavitary pneumonia Is this a current diagnosis for this admission?: Yes Plan: Recently at [facility] for CAP. Said to be pseudomonas(records pending). Has COPD. Left earlier than desired, he wanted to go home, however he has been steadily getting weaker, more confused, not eating well. Brought to ED and found by CT chest to have a cavitary PNA in [place] with abcess. Admitted to [facility] which is appropriate. Should he become more obtunded, lower his BP or have difficulty breathing he my merit the ICU but not at this point. (2) Severe sepsis with acute organ dysfunction Is this a current diagnosis for this admission?: Yes Plan: He has initial RR 24, HR 96, temp 100.8, WBC of 15. There is evidence of an abcess, therefore he is septic. With CHIEF PORT DIRECTOR dysfunction, delirium he qualifies for severe sepsis even with a normal lactate. Sepsis protocol invoked. (3) Dehydration determined by examination Is this a current diagnosis for this admission?: Yes Plan: He looks clinically dehydrated with dry lips and mouth. He is receiving 2nd liter of NS. (4) Delirium Is this a current diagnosis for this admission?: Yes Plan: This should improve as he is volume loaded and gets antibiotics. Plan Summary: Continue sepsis protocol, old records, treat for pseudomonas. Dr. Bateman to see. May need bronchospic ar CT drainage. Also check random cortisol looking for CIRCI (Critical illness related cortisol insufficiency). He was on steroids in the hospital but not at home. If lower than 35 he may need stress steroids. Critical Time Critical Time (minutes): 35 Level of Care: IMCU Anticipated discharge: SNF Within: Other - Too soon to tell. -: 1. The care of a critical patient is a dynamic process. This note is a fulfillment representative synopsis but static in nature. The timeframe for treatments given in order is not necessarily the actual time these treatments may have been done. 2. This patient requires critical care secondary to ongoing requirements for therapy not offered or safe outside the critical care environment. Transfer to a lower level of care will result in altered life or limb morbidity and mortality. 3. Multidisciplinary rounds completed. 4. ABCDE bundle addressed.
[2019-04-10] MEDS ORDERED: PIPERACILLIN/TAZOBACTAM 3.375 GM VIAL IV SCH (18:00)
[2019-04-10] MEDS: PIPERACILLIN SODIUM/TAZOBACTAM 3.375 GM in NORMAL SALINE 100 ML IV SCH (20:13)
[2019-04-10] MEDS: GUAIFENESIN 600 MG TABLET.SA PO SCH (21:52)
[2019-04-10] MEDS ORDERED: VANCOMYCIN HCL INJ 1000 MG VIAL IV SCH (22:00)
[2019-04-11] MEDS: LEVALBUTEROL HCL NEB 0.63 MG/3 ML AMPUL NEB SCH ×2 (00:01→09:00)
[2019-04-11] MEDS: PIPERACILLIN SODIUM/TAZOBACTAM 3.375 GM in NORMAL SALINE 100 ML IV SCH ×4 (02:20→22:23)
[2019-04-11 04:38] LABS: HEMATOCRIT 22.1 % (37.9-51.0); MEAN CORPUSCULAR HEMOGLOBIN 29.6 pg (27.0-33.4); MEAN CORPUSCULAR HGB CONC 32.6 g/dL (32.0-36.0); MEAN CORPUSCULAR VOLUME 91 fl (80-97); PLATELET COUNT 647 10^3/uL (150-450); RED BLOOD COUNT 2.44 10^6/uL (4.35-5.55); RED CELL DISTRIBUTION WIDTH 15.8 % (11.5-14.0); WHITE BLOOD COUNT 18.3 10^3/uL (4.0-10.5)
[2019-04-11 04:56] LABS: ALBUMIN 1.9 g/dL (3.5-5.0); ALKALINE PHOSPHATASE 113 U/L (38-126); ANION GAP 7 (5-19); ASPARTATE AMINO TRANSFERASE 24 U/L (17-59); BILIRUBIN,TOTAL 0.2 mg/dL (0.2-1.3); BLOOD UREA NITROGEN 41 mg/dL (7-20); CALCIUM 8.9 mg/dL (8.4-10.2); CARBON DIOXIDE 34 mmol/L (22-30); CHLORIDE 96 mmol/L (98-107); GLUCOSE 223 mg/dL (75-110); POTASSIUM 4.9 mmol/L (3.6-5.0); TOTAL PROTEIN 4.4 g/dL (6.3-8.2)
[2019-04-11] MEDS: VANCOMYCIN HCL 500 MG in DEXTROSE 5%-WATER 100 ML IV SCH ×2 (05:02→18:18)
[2019-04-11 05:14] LABS: HEMOGLOBIN 7.2 g/dL (13.5-17.0)
[2019-04-11 05:18] LABS: ABSOLUTE LYMPHOCYTES# (MANUAL) 0.4 10^3/uL (0.5-4.7); ABSOLUTE MONOCYTES # (MANUAL) 0.7 10^3/uL (0.1-1.4); BAND NEUTROPHILS % (MANUAL) 6 % (3-5); BASOPHILS % (MANUAL) 0 % (0-2); EOSINOPHILS % (MANUAL) 0 % (0-6); LYMPHOCYTES % (MANUAL) 2 % (13-45); MONOCYTES % (MANUAL) 4 % (3-13); SEGMENTED NEUTROPHILS % (MAN) 88 % (42-78); TOTAL CELLS COUNTED 100
[2019-04-11 05:19] LABS: PLATELET COMMENT INCREASED
[2019-04-11 05:20] LABS: ANISOCYTOSIS SLIGHT
[2019-04-11] MEDS: GUAIFENESIN 600 MG TABLET.SA PO SCH ×2 (09:14→22:23)
[2019-04-11] MEDS: ENOXAPARIN SODIUM INJ 40 MG/0.4 ML DISP.SYRIN SUBCUT SCH (09:14)
[2019-04-11] MEDS: FLUTICASONE/UMECLIDIN/VILANTER 100-62.5-25 MCG/DOSE IH SCH (09:16)
[2019-04-11] MEDS ORDERED: IPRATROPIUM/ALBUTEROL 0.5-2.5 MG/3 ML AMPUL NEB PRN (14:32)
[2019-04-11] MEDS ORDERED: ACETYLCYSTEINE 10% NEB 400 MG/4 ML VIAL NEB PRN (14:32)
[2019-04-11] MEDS ORDERED: ALBUTEROL SULFATE HFA (90 MCG/PUFF) 200 PUFF/8.5 GM MDI IH PRN (14:32)
--- NOTE | 2019-04-11 16:07 | PDOC PROGRESS REPORT ---
Subjective Progress Note for:: 04/11/19 Subjective:: Patient was seen and examined. He is a poor historian. Appears comfortable on nasal cannula oxygen. He says that he started feeling sick since Thanksgiving and did not follow-up with a physician. He said his tube handler is Dr. Bateman. Reason For Visit: SEVERE SEPSIS,LUNG ABSCESS Physical Exam Vital Signs: Temp Pulse Resp BP Pulse Ox 97.3 F 106 H 14 105/48 L 103 H 04/11/19 11:54 04/11/19 11:54 04/11/19 11:54 04/11/19 11:54 04/11/19 12:00 Pulse Oximeter Continuous Start: 04/10/19 17:07 Freq: RTQ4 Status: Active Protocol: Document 04/11/19 12:00 LDI (Rec: 04/11/19 12:34 LDI [id number]) Pulse Oximetry Assessment Oxygen Saturation (92-100) 103 Oxygen Flow Rate (L/min) 3 Oxygen Delivery Method Nasal Cannula Fraction of Inspired Oxygen (FIO2) 32 Equipment Usage Equipment in Use Continuous SpO2 Machine # 5 Intake & Output 04/10/19 04/11/19 04/12/19 06:59 06:59 06:59 Intake Total 3820 1650 Output Total 750 Balance 3070 1650 Weight 151 lb 14.376 oz Exam: Patient is no acute distress Alert oriented to time place person No anxiety or depression Head: atraumatic normocephalic Pupils: are equal reactive Neck: is supple and trachea is central no lymphadenopathy No pharyngeal erythema or exudates Heart: Regular rate and rhythm, no peripheral edema Lungs: Bilateral wheezing, mild respiratory distress Abdomen: nontender nondistended Neurological exam: unremarkable Musculoskeletal: No joint swelling or effusion chronic lower back pain and tenderness No suicidal or homicidal ideation Results Laboratory Results: 04/11/19 04:01 04/11/19 04:01 04/10/19 04/11/19 04/11/19 17:45 04:01 04:01 WBC 18.3 H RBC 2.44 L Hgb 7.2 L Hct 22.1 L MCV 91 MCH 29.6 MCHC 32.6 RDW 15.8 H Plt Count 647 H Seg Neutrophils % Not Reportable Sodium 136.9 L Potassium 4.9 Chloride 96 L Carbon Dioxide 34 H Anion Gap 7 BUN 41 H Creatinine 1.25 Est GFR ( Amer) > 60 Glucose 223 H Lactic Acid 3.6 H Calcium 8.9 Total Bilirubin 0.2 AST 24 Alkaline Phosphatase 113 Total Protein 4.4 L Albumin 1.9 L 04/11/19 07:34 WBC RBC Hgb Hct MCV MCH MCHC RDW Plt Count Seg Neutrophils % Sodium Potassium Chloride Carbon Dioxide Anion Gap BUN Creatinine Est GFR ( Amer) Glucose Lactic Acid 2.1 Calcium Total Bilirubin AST Alkaline Phosphatase Total Protein Albumin 04/10/19 11:50 Troponin I 0.021 NT-Pro-B Natriuret Pep 699 H Impressions: Chest X-Ray 04/10/19 11:51 IMPRESSION: Large area of consolidation in the left upper lobe with appearance of necrotizing pneumonia or possibly cavitary mass. Further evaluation with contrast-enhanced CT of the chest is recommended. Chest CT 04/10/19 13:04 IMPRESSION: 1. There is a dramatic change in the appearance of the left upper lobe with a large pneumatocoele containing an air-fluid level. Dense elements are seen peripherally which contains small air spaces. The findings suggest an infectious process, perhaps a fungal infection. 2. There are small a moderate bilateral pleural effusions. There is mild dependent atelectasis. 3. A small right upper lobe pulmonary nodule seen on the prior study is not identified on the current study. 4. Severe emphysematous changes are present. Assessment and Plan - Diagnosis (1) Abscess of lung with pneumonia Qualifiers: Laterality: left Lung location: upper lobe of lung Qualified Code(s): J85.1 - Abscess of lung with pneumonia Is this a current diagnosis for this admission?: Yes Plan: Recently at [facility] for CAP. Said to be pseudomonas(records pending). Has COPD. Left earlier than desired, he wanted to go home, however he has been steadily getting weaker, more confused, not eating well. Brought to ED and found by CT chest to have a cavitary PNA in [place] with abcess. Admitted to [facility] which is appropriate. Consult to his tube handler Dr. Bateman is pending. Continue current antibiotics. Discussed with the patient and nursing staff. (2) COPD (chronic obstructive pulmonary disease) Is this a current diagnosis for this admission?: Yes Plan: Continue current antibiotics. Continue inhaled treatments. Continue pulmonary toilet. Continue oxygen via nasal cannula. Continue inhaled steroids. (3) Severe sepsis Is this a current diagnosis for this admission?: Yes Plan: Has received IV boluses. Currently blood pressure stable. Continue antibiotics.
[2019-04-11] MEDS: IPRATROPIUM/ALBUTEROL 0.5-2.5 MG/3 ML AMPUL NEB SCH ×2 (16:19→19:49)
[2019-04-11] MEDS: LISINOPRIL 10 MG TABLET PO SCH (17:22)
[2019-04-11] MEDS ORDERED: NORMAL SALINE 1000 ML 1,000 ML IV ONE (17:45)
[2019-04-11 17:59] LABS: BLOOD UREA NITROGEN 42 mg/dL (7-20); CALCIUM 9.2 mg/dL (8.4-10.2); CARBON DIOXIDE 38 mmol/L (22-30); CHLORIDE 96 mmol/L (98-107); GLUCOSE 152 mg/dL (75-110)
[2019-04-11 18:10] LABS: ANION GAP 0 (5-19)
[2019-04-11] MEDS: PANTOPRAZOLE SODIUM 40 MG TABLET.DR PO SCH (18:17)
[2019-04-11] MEDS: CILOSTAZOL 100 MG TABLET PO SCH (18:17)
[2019-04-11] MEDS: ACETYLCYSTEINE 10% NEB 400 MG/4 ML VIAL NEB SCH ×2 (18:26→19:49)
[2019-04-12] MEDS: IPRATROPIUM/ALBUTEROL 0.5-2.5 MG/3 ML AMPUL NEB SCH ×7 (00:19→23:53)
[2019-04-12] MEDS: PIPERACILLIN SODIUM/TAZOBACTAM 3.375 GM in NORMAL SALINE 100 ML IV SCH ×4 (04:56→22:19)
[2019-04-12 05:18] LABS: HEMATOCRIT 19.6 % (37.9-51.0); MEAN CORPUSCULAR HEMOGLOBIN 29.3 pg (27.0-33.4); MEAN CORPUSCULAR HGB CONC 32.8 g/dL (32.0-36.0); MEAN CORPUSCULAR VOLUME 89 fl (80-97); PLATELET COUNT 642 10^3/uL (150-450); RED BLOOD COUNT 2.19 10^6/uL (4.35-5.55); RED CELL DISTRIBUTION WIDTH 15.5 % (11.5-14.0); WHITE BLOOD COUNT 21.4 10^3/uL (4.0-10.5)
[2019-04-12 05:35] LABS: ALBUMIN 1.8 g/dL (3.5-5.0); ALKALINE PHOSPHATASE 97 U/L (38-126); ASPARTATE AMINO TRANSFERASE 28 U/L (17-59); BILIRUBIN,DIRECT 0.2 mg/dL (0.0-0.4); BILIRUBIN,TOTAL 0.2 mg/dL (0.2-1.3); BLOOD UREA NITROGEN 38 mg/dL (7-20); CALCIUM 9.3 mg/dL (8.4-10.2); CHLORIDE 98 mmol/L (98-107); GLUCOSE 129 mg/dL (75-110); POTASSIUM 4.6 mmol/L (3.6-5.0); TOTAL PROTEIN 4.1 g/dL (6.3-8.2)
[2019-04-12] MEDS: VANCOMYCIN HCL 500 MG in DEXTROSE 5%-WATER 100 ML IV SCH (05:40)
[2019-04-12 05:41] LABS: ABSOLUTE LYMPHOCYTES# (MANUAL) 0.4 10^3/uL (0.5-4.7); ABSOLUTE MONOCYTES # (MANUAL) 1.3 10^3/uL (0.1-1.4); BASOPHILS % (MANUAL) 0 % (0-2); EOSINOPHILS % (MANUAL) 0 % (0-6); LYMPHOCYTES % (MANUAL) 2 % (13-45); SEGMENTED NEUTROPHILS % (MAN) 90 % (42-78); TOTAL CELLS COUNTED 100
[2019-04-12 05:42] LABS: CARBON DIOXIDE 36 mmol/L (22-30)
[2019-04-12 05:43] LABS: ANION GAP 3 (5-19); ANISOCYTOSIS 1+; METAMYELOCYTES % (MANUAL) 1 % (0-1); MONOCYTES % (MANUAL) 7 % (3-13); PLATELET COMMENT INCREASED; POLYCHROMASIA 1+
[2019-04-12 05:46] LABS: HEMOGLOBIN 6.4 g/dL (13.5-17.0)
[2019-04-12] MEDS ORDERED: ACETAMINOPHEN 325 MG TABLET PO PRN (06:04)
[2019-04-12] MEDS ORDERED: DIPHENHYDRAMINE HCL 25 MG CAPSULE PO PRN (06:05)
[2019-04-12] MEDS: ACETYLCYSTEINE 10% NEB 400 MG/4 ML VIAL NEB SCH ×2 (07:45→19:54)
[2019-04-12] MEDS ORDERED: METOPROLOL SUCCINATE 50 MG TAB.SR.24H PO SCH (10:00)
[2019-04-12] MEDS ORDERED: ATORVASTATIN CALCIUM 40 MG TABLET PO SCH (10:00)
[2019-04-12] MEDS ORDERED: UMECLIDINIUM BROMIDE 62.5 MCG/DOSE IH SCH (10:00)
[2019-04-12] MEDS ORDERED: (PENDING PHARMACY ID) (Lisinopril [Lisinopril] 10 MG) PO SCH (10:00)
[2019-04-12] MEDS ORDERED: FLUTICASONE/VILANTEROL 200-25 MCG/DOSE IH SCH (10:00)
[2019-04-12] MEDS ORDERED: ASPIRIN 81 MG TABLET, CHEWABLE PO SCH (10:00)
[2019-04-12] MEDS ORDERED: (PENDING PHARMACY ID) (Tiotropium Bromide [Spiriva Handihaler 5 Cap/Kit (18 Mcg/Cap)] 1 CA IH SCH (10:00)
[2019-04-12] MEDS: FLUTICASONE/UMECLIDIN/VILANTER 100-62.5-25 MCG/DOSE IH SCH (11:46)
[2019-04-12] MEDS: CILOSTAZOL 100 MG TABLET PO SCH ×2 (11:47→17:55)
[2019-04-12] MEDS: LISINOPRIL 10 MG TABLET PO SCH (11:47)
[2019-04-12] MEDS: PANTOPRAZOLE SODIUM 40 MG TABLET.DR PO SCH ×2 (11:47→17:55)
[2019-04-12] MEDS: GUAIFENESIN 600 MG TABLET.SA PO SCH ×2 (11:47→22:19)
[2019-04-12] MEDS: ENOXAPARIN SODIUM INJ 40 MG/0.4 ML DISP.SYRIN SUBCUT SCH (11:48)
--- NOTE | 2019-04-12 14:00 | PDOC DISCHARGE SUMMARY ---
Impression - Admit/DC Date/PCP Admission Date/Primary Care Provider: 04/10/19 15:07 NED SORTO MD Discharge Date: 04/12/19 - Discharge Diagnosis (1) Abscess of lung with pneumonia Is this a current diagnosis for this admission?: Yes (2) COPD (chronic obstructive pulmonary disease) Is this a current diagnosis for this admission?: Yes (3) Severe sepsis Is this a current diagnosis for this admission?: Yes - Additional Information Resuscitation Status: Full Code Referrals: FANNY BATEMAN MD [ACTIVE STAFF] - Follow up as needed Home Medications: Acetylcysteine [Mucomist 10% Neb 400 mg/4 mL Vial] 400 mg NEB BIDP PRN 04/11/19 Albuterol Sulfate [Albuterol Sulfate Hfa] 2 puff IH Q4HP PRN 04/11/19 Aspirin [Bianka Chewable Aspirin] 81 mg PO DAILY 04/11/19 Atorvastatin Calcium [Lipitor 40 mg Tablet] 40 mg PO DAILY 04/11/19 Budesonide/Formoterol Fumarate [Symbicort HFA 160-4.5 mcg Inhaler 6 gm] 2 puff IH Q12 04/11/19 Cilostazol [Pletal 100 mg Tablet] 100 mg PO BID 04/11/19 Ipratropium/Albuterol Sulfate [Duoneb 3 ml Ampul] 3 ml NEB RTQ6HP PRN 04/11/19 Lisinopril 10 mg PO DAILY 04/11/19 Metoprolol Succinate [Toprol Xl 50 mg Tab.sr] 50 mg PO DAILY 04/11/19 Pantoprazole Sodium [Protonix [address] Tablet] 40 mg PO BID 04/11/19 Tiotropium [place] [Spiriva Handihaler 5 Cap/Kit (18 Mcg/Cap)] 1 cap IH DAILY 04/11/19 Acetaminophen [Tylenol 325 mg Tablet] 650 mg PO Q4HP PRN tablet 04/12/19 Diphenhydramine HCl [Benadryl 25 mg Capsule] 25 mg PO ONCEP PRN capsule 04/12/19 Enoxaparin Sodium [Lovenox Inj 40 mg/0.4 ml Disp.syrin] 40 mg SUBCUT DAILY disp.syrin 04/12/19 Guaifenesin [Mucinex Sr 600 mg Tablet.sa] 600 mg PO Q12 tablet.sa 04/12/19 Piperacillin Sodium/Tazobactam [Zosyn Inj 3.375 gm Vial] 3.375 gm IV Q6A vial 04/12/19 Tobramycin Sulfate [Tobramycin Neb 40 mg/ml 30 ml Vial] 300 mg NEB RTQ12 ml History of Present Illiness History of Present Illness: KIMBERLY SHAH is a 68 year old male with a history of advanced emphysema on 4 L home O2, hypertension who was brought in by daughter and for evaluation of increased weakness, malaise and shortness of breath. Of note patient was recently in [facility] where he was admitted for 2 weeks for treatment of pneumonia and discharged about 2 weeks ago. During his stay at the hospital he received antibiotics and there was some mention of Pseudomonas. Chest CT that was done over there did not show any cavitary lung lesion. When patient was discharged, patient started getting increasingly weak. Family noticed some cough as well and fever. Family also reports that patient has been getting increasingly confused. In the ER patient was noted to have a cavitary lung lesion which does appear to be an abscess. Subsequently recommended for admission by hospitalist service. Hospital Course Hospital Course: (1) Abscess of lung with pneumonia Recently at [facility] for CAP. Said to be pseudomonas(records pending). Has COPD. Left earlier than desired, he wanted to go home, however he has been steadily getting weaker, more confused, not eating well. Brought to ED and found by CT chest to have a cavitary PNA in [place] with abcess. [place] [facility] [place]. 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 Bateman. Continue Zosyn and start inhaled tobramycin after discussion with Dr. Bateman. Discussed with the patient and nursing staff. Patient will need to be evaluated by thoracic surgeon. I called [facility] but they are at capacity and not accepting any transfers. I called [facility] and spoke with the thoracic surgeon and hospitalist and they graciously accepted the patient. (2) COPD (chronic obstructive pulmonary disease) Continue antibiotics. Continue inhaled treatments. Continue pulmonary toilet. Continue oxygen via nasal cannula. Continue inhaled steroids. (3) Severe sepsis Has received IV boluses. Currently blood pressure stable. Continue antibiotics. Physical Exam Vital Signs: Temp Pulse Resp BP Pulse Ox 97.7 F 95 18 93/45 L 93 04/12/19 13:02 04/12/19 13:02 04/12/19 13:02 04/12/19 13:02 04/12/19 13:02 Pulse Oximeter Continuous Start: 04/10/19 17:07 Freq: RTQ4 Status: Active Protocol: Document 04/12/19 12:31 LDI (Rec: 04/12/19 12:35 LDI [id number]) Pulse Oximetry Assessment Oxygen Saturation (92-100) 100 Oxygen Flow Rate (L/min) 3 Oxygen Delivery Method Nasal Cannula Fraction of Inspired Oxygen (FIO2) 32 Equipment Usage Equipment in Use Continuous SpO2 Machine # [id number] Intake & Output 04/11/19 04/12/19 04/13/19 06:59 06:59 06:59 Intake Total 3820 2450 500 Output Total 750 1250 Balance 3070 1200 500 Weight 151 lb 14.376 oz 166 lb 3.657 oz Exam: Patient is no acute distress Alert oriented to time place person No anxiety or depression Head: atraumatic normocephalic Pupils: are equal reactive Neck: is supple and trachea is central no lymphadenopathy No pharyngeal erythema or exudates Heart: Regular rate and rhythm, no peripheral edema Lungs: Bilateral wheezing, mild respiratory distress Abdomen: nontender nondistended Neurological exam: unremarkable Musculoskeletal: No joint swelling or effusion chronic lower back pain and tenderness No suicidal or homicidal ideation Results Laboratory Results: WBC 21.4 10^3/uL (4.0-10.5) H 04/12/19 04:05 RBC 2.19 10^6/uL (4.35-5.55) L 04/12/19 04:05 Hgb 6.4 g/dL (13.5-17.0) L 04/12/19 04:05 Hct 19.6 % (37.9-51.0) L 04/12/19 04:05 MCV 89 fl (80-97) 04/12/19 04:05 MCH 29.3 pg (27.0-33.4) 04/12/19 04:05 MCHC 32.8 g/dL (32.0-36.0) 04/12/19 04:05 RDW 15.5 % (11.5-14.0) H 04/12/19 04:05 Plt Count 642 10^3/uL (150-450) H 04/12/19 04:05 Lymph % (Auto) Not Reportable 04/12/19 04:05 [place] % (Auto) Not Reportable 04/12/19 04:05 Eos % (Auto) Not Reportable 04/12/19 04:05 Baso % (Auto) Not Reportable 04/12/19 04:05 Absolute Neuts (auto) Not Reportable 04/12/19 04:05 Absolute Lymphs (auto) Not Reportable 04/12/19 04:05 Absolute Monos (auto) Not Reportable 04/12/19 04:05 Absolute Eos (auto) Not Reportable 04/12/19 04:05 Absolute Basos (auto) Not Reportable 04/12/19 04:05 Total Counted 100 04/12/19 04:05 Seg Neutrophils % Not Reportable 04/12/19 04:05 Seg Neuts % (Manual) 90 % (42-78) H 04/12/19 04:05 Band Neutrophils % 6 % (3-5) H 04/11/19 04:01 Lymphocytes % (Manual) 2 % (13-45) L 04/12/19 04:05 Monocytes % (Manual) 7 % (3-13) 04/12/19 04:05 Eosinophils % (Manual) 0 % (0-6) 04/12/19 04:05 Basophils % (Manual) 0 % (0-2) 04/12/19 04:05 Metamyelocytes % 1 % (0-1) 04/12/19 04:05 Abs Neuts (Manual) 19.7 10^3/uL (1.7-8.2) H 04/12/19 04:05 Abs Lymphs (Manual) 0.4 10^3/uL (0.5-4.7) L 04/12/19 04:05 Abs Monocytes (Manual) 1.3 10^3/uL (0.1-1.4) 04/12/19 04:05 Absolute Eos (Manual) 0.0 10^3/uL (0.0-0.6) 04/12/19 04:05 Abs Basophils (Manual) 0.0 10^3/uL (0.0-0.2) 04/12/19 04:05 Toxic Granulation SLIGHT 04/10/19 11:50 Clumped Platelets PRESENT 04/10/19 11:50 Platelet Comment INCREASED 04/12/19 04:05 Polychromasia 1+ 04/12/19 04:05 Basophilic Stippling PRESENT 04/12/19 04:05 Anisocytosis 1+ 04/12/19 04:05 Carbonic Acid 1.75 mmol/L (1.05-1.35) H 04/10/19 13:14 HCO3/H2CO3 Ratio 23:1 04/10/19 13:14 ABG pH 7.46 (7.35-7.45) H 04/10/19 13:14 ABG pCO2 58.3 mmHg (35-45) H 04/10/19 13:14 ABG pO2 51.6 mmHg (80-100) L 04/10/19 13:14 ABG HCO3 40.6 mmol/L (20-24) H 04/10/19 13:14 ABG Total CO2 42.4 mmol/L (23-27) H 04/10/19 13:14 ABG O2 Saturation 87.4 % (94-98) L 04/10/19 13:14 ABG Base Excess 15.1 mmol/L 04/10/19 13:14 VBG pH Cancelled 04/10/19 11:50 VBG pCO2 Cancelled 04/10/19 11:50 VBG HCO3 Cancelled 04/10/19 11:50 VBG Base Excess Cancelled 04/10/19 11:50 FiO2 3L 04/10/19 13:14 Sodium 137.1 mmol/L (137-145) 04/12/19 04:05 Potassium 4.6 mmol/L (3.6-5.0) 04/12/19 04:05 Chloride 98 mmol/L (98-107) 04/12/19 04:05 Carbon Dioxide 36 mmol/L (22-30) H 04/12/19 04:05 Anion Gap 3 (5-19) L 04/12/19 04:05 BUN 38 mg/dL (7-20) H 04/12/19 04:05 Creatinine 1.09 mg/dL (0.52-1.25) 04/12/19 04:05 Est GFR ( Amer) > 60 (>60) 04/12/19 04:05 Est GFR (MDRD) Non-Af > 60 (>60) 04/12/19 04:05 Glucose 129 mg/dL (75-110) H 04/12/19 04:05 Lactic Acid 2.1 mmol/L (0.7-2.1) 04/11/19 07:34 Calcium 9.3 mg/dL (8.4-10.2) 04/12/19 04:05 Total Bilirubin 0.2 mg/dL (0.2-1.3) 04/12/19 04:05 Direct Bilirubin 0.2 mg/dL (0.0-0.4) 04/12/19 04:05 Neonat Total Bilirubin Not Reportable 04/12/19 04:05 Neonat Direct Bilirubin Not Reportable 04/12/19 04:05 Neonat Indirect Bili Not Reportable 04/12/19 04:05 AST 28 U/L (17-59) 04/12/19 04:05 ALT 27 U/L (<50) 04/12/19 04:05 Alkaline Phosphatase 97 U/L (38-126) 04/12/19 04:05 Troponin I 0.021 ng/mL 04/10/19 11:50 NT-Pro-B Natriuret Pep 699 pg/mL (<125) H 04/10/19 11:50 Total Protein 4.1 g/dL (6.3-8.2) L 04/12/19 04:05 Albumin 1.8 g/dL (3.5-5.0) L 04/12/19 04:05 Random Cortisol 59.90 ug/dL (None Established) 04/10/19 11:50 Blood Type O POSITIVE 04/12/19 07:59 Blood Type Confirm O POSITIVE 04/12/19 08:20 Antibody Screen NEGATIVE 04/12/19 07:59 Crossmatch See Detail 04/12/19 07:59 04/10/19 11:50 Troponin I 0.021 NT-Pro-B Natriuret Pep 699 H Impressions: Chest X-Ray 04/10/19 11:51 IMPRESSION: Large area of consolidation in the left upper lobe with appearance of necrotizing pneumonia or possibly cavitary mass. Further evaluation with contrast-enhanced CT of the chest is recommended. Chest CT 04/10/19 13:04 IMPRESSION: 1. There is a dramatic change in the appearance of the left upper lobe with a large pneumatocoele containing an air-fluid level. Dense elements are seen peripherally which contains small air spaces. The findings suggest an infectious process, perhaps a fungal infection. 2. There are small a moderate bilateral pleural effusions. There is mild dependent atelectasis. 3. A small right upper lobe pulmonary nodule seen on the prior study is not identified on the current study. 4. Severe emphysematous changes are present. Plan Time Spent: Greater than 30 Minutes - 45 minutes Stroke Is this a Stroke Patient?: No Acute Heart Failure - Is this a Heart Failure Patient?: No
[2019-04-12 19:05] LABS: HEMATOCRIT 23.3 % (37.9-51.0); MEAN CORPUSCULAR HEMOGLOBIN 29.7 pg (27.0-33.4); MEAN CORPUSCULAR HGB CONC 33.9 g/dL (32.0-36.0); MEAN CORPUSCULAR VOLUME 88 fl (80-97); PLATELET COUNT 572 10^3/uL (150-450); RED BLOOD COUNT 2.66 10^6/uL (4.35-5.55); RED CELL DISTRIBUTION WIDTH 16.7 % (11.5-14.0)
[2019-04-12 19:08] LABS: HEMOGLOBIN 7.9 g/dL (13.5-17.0)
[2019-04-12] MEDS ORDERED: TOBRAMYCIN SULFATE NEB 40 MG/ML 30 ML NEB SCH (20:00)
[2019-04-12] MEDS ORDERED: TOBRAMYCIN SULFATE INJ 80 MG/2 ML VIAL NEB SCH (20:00)
[2019-04-12 21:05] VITALS: BP 103/91
== END 2019-04-13 01:21 | disposition short-term general hospital (02) | DRG 871 ==
LOC: ER 11:36 → EH 15:07 → 3N 16:45
PROVIDERS: ADMIT Internal Medicine; ATTEND Internal Medicine
PROC: 30233N1 Transfusion of Nonautologous Red Blood Cells into Peripheral Vein, Percutaneous Approach (ICD-10-PCS; principal; 2019-04-12)
DX: A41.9 Sepsis, unspecified organism (principal); J85.1 Abscess of lung with pneumonia; J96.21 Acute and chronic respiratory failure with hypoxia; J15.1 Pneumonia due to Pseudomonas; R65.20 Severe sepsis without septic shock; J43.9 Emphysema, unspecified; I10 Essential (primary) hypertension; E86.0 Dehydration; R41.0 Disorientation, unspecified; I45.10 Unspecified right bundle-branch block; Z99.81 Dependence on supplemental oxygen; Z87.891 Personal history of nicotine dependence
CPT/HCPCS: 36415; 36430; 36600; 71045; 71260; 80048; 80053; 82533; 82803; 83605; 83880; 84484; 85025; 86850; 86900; 86901; 86920; 87040; 87070; 87077; 87186; 87205; 93005; 93010; 94640; 94762; 96361; 96365; 96375; 99291; J1650; J2543; J2930; J3370; J3490; J7030; J7050; J7060; J7614; J7620; J7685; P9016